=== PATIENT | male | born 1960 | race Caucasian/White ===

== ENCOUNTER → 2023-11-01 06:32 | Day surgery (SDC) | payer OTHER, SELFPAY | LOC: GI 06:32 | PROVIDERS: ATTENDING PHYSICIAN Internal Medicine Gastroenterology | DX: Z12.11 Encounter for screening for malignant neoplasm of colon (principal); K57.30 Diverticulosis of large intestine without perforation or abscess without bleeding; K64.8 Other hemorrhoids | CPT/HCPCS: G0121 ==

== ENCOUNTER → 2024-07-16 16:16 | Outpatient (REF) | payer OTHER, SELFPAY | LOC: RAD 16:16 | PROVIDERS: ATTENDING PHYSICIAN Physician Assistant Medical | DX: R10.9 Unspecified abdominal pain (principal) | CPT/HCPCS: 74178; Q9967 ==

== ENCOUNTER 2024-10-29 08:11 | Inpatient (IN) | payer OTHER, SELFPAY ==
[2024-10-28 20:23] VITALS: BP 148/95
[2024-10-28 20:38] LABS: % Basophils 0.2 % (0-2); % Immature Granulocytes 0.5 % (0-0.5); % Lymphocytes 9.2 % (20.5-51.1); % Monocytes 9.2 % (1.7-9.3); % Neutrophils 80.9 % (42.2-75.2); Absolute Immature Granulocytes 0.1 10^3/uL (0-0.05); Absolute Lymphocytes 1.1 10^3/uL (1.2-3.4); Absolute Monocytes 1.1 10^3/uL (0.1-0.6); Absolute Neutrophils 9.6 10^3/uL (1.4-6.5); Hematocrit 41.9 % (39.0-52.0); Hemoglobin 14.9 g/dL (13.0-18.0); Mean Corp Hgb Conc. 35.6 g/dL (33.0-37.0); Mean Corpuscular Hgb 31.2 pg (27.0-31.0); Mean Corpuscular Volume 87.7 fL (80.0-94.0); Mean Platelet Volume 9.3 fL (7.4-10.4); Nucleated Red Blood Cells % 0 % (-); Platelet Count 239 10^3/uL (130-400); Red Blood Cell Count 4.78 10^6/uL (4.70-6.10); White Blood Cell Count 11.9 10^3/uL (4.8-10.8)
[2024-10-28 21:00] LABS: ALT (SGPT) 33 U/L (0-50); AST (SGOT) 31 U/L (17-59); Albumin 4.7 g/dl (3.5-5.0); Alkaline Phosphatase 84 U/L (38-126); Blood Urea Nitrogen 13 mg/dl (9-20); Calcium 9.7 mg/dl (8.4-10.2); Carbon Dioxide 22 mmol/L (22-30); Chloride 106 mmol/L (98-107); Glucose 165 mg/dl (70-99); Potassium 4.1 mmol/L (3.5-5.1); Sodium 138 mmol/L (135-145); Total Bilirubin 1.3 mg/dl (0.2-1.3); Total Protein 7.7 g/dl (6.3-8.2); eGFR > 60.00
--- NOTE | 2024-10-28 21:32 | ED.GENMED ---
History of Present Illness
General
Chief Complaint: Abdominal Pain
Time Seen by Provider: 10/28/24 21:26
History of Present Illness
History of Present Illness:
Patient presents to the emergency department with lower abdominal pain. States he feels that he cannot have a bowel movement and he feels 'blocked.' Notes his last bowel movement was yesterday. He is passing gas. Denies any vomiting. Is having
discomfort in his lower abdomen
Phy Exam
Physical Exam
Physical Exam:
GENERAL APPEARANCE: NAD, well developed/ well nourished
EYES lids/conjunctiva normal
EARS/NOSE/THROAT Mucous membranes moist, uvula midline without oral pharyngeal erythema, exudate or swelling
HEAD/NECK normocephalic atraumatic, neck is supple.
RESPIRATORY respiratory effort normal, speaks in full sentences, no accessory muscle use. Lungs clear to auscultation without rhonchi, wheezes, rales
CARDIAC Regular rate and rhythm, no edema.
ABDOMINAL abdomen is mildly distended. There is mild lower abdominal tenderness throughout. There is no guarding. Abdomen is somewhat firm
MUSCLES/EXTREMITIES No abnormal range of motion, no swelling.
SKIN Warm, pink and dry. No rashes
NEUROLOGICAL Speech is clear and appropriate. Normal level of consciousness. 5/5 strength in all extremities.
PSYCH Normal mood and affect. Judgement/competence is appropriate
Course
Orders/Labs/Results
Orders:
Orders
10/28/24 20:29
Complete Blood Count/With Diff Urgent
Comprehensive Metabolic Panel Urgent
10/28/24 21:31
CT Abd/pelvis W Iv Cont Urgent
Comment:
Reason For Exam: lower abdominal pain
10/28/24 21:51
Lipase Urgent
10/28/24 22:53
Urinalysis Reflex To Culture Urgent
Date Specimen was Collected: 10/28/24
Time Specimen was Collected: 22:52
Urine Microscopic Reflex Cult Urgent
Urine Culture Urgent
SHELLEY Source: U
Specimen Description:
Obtained by: Random
Date Specimen was Collected: 10/28/24
Time Specimen was Collected: 22:52
10/28/24 23:19
0.9% Sodium Chloride 1000 ml [Nss] 1,000 ml IV BOLUS
Ampicillin/Sulbactam 3 G [Unasyn] 3 gm 0.9% Sodium Chloride 100 ml [Nss] 100 ml IV NOW
Morphine Sulfate 4 mg IV NOW STA
10/28/24 23:22
Ampicillin/Sulbactam 3 G [Unasyn] 3 gm 0.9% Sodium Chloride 100 ml [Nss] 100 ml IV NOW
Abnormal Lab Results
10/28/24 10/28/24 10/28/24
20:29 21:51 22:53
WBC 11.9 H 10^3/uL
(4.8-10.8)
MCH 31.2 H pg
(27.0-31.0)
Abs Immat Gran (auto) 0.1 H 10^3/uL
(0-0.05)
Absolute Neuts (auto) 9.6 H 10^3/uL
(1.4-6.5)
Absolute Lymphs (auto) 1.1 L 10^3/uL
(1.2-3.4)
Absolute Monos (auto) 1.1 H 10^3/uL
(0.1-0.6)
Neutrophils % 80.9 H %
(42.2-75.2)
Lymphocytes % 9.2 L %
(20.5-51.1)
Glucose 165 H mg/dl
(70-99)
Lipase 1084 H* U/L
(23-300)
Ur Occult Blood Reflex 1+ A
(Negative)
Leukocyte Esterase Rfl 1+ A
(Negative)
Urine Albumin (Reflex) 1+ A
(Neg - Trace)
10/28/24 20:29
10/28/24 20:29
Vital Signs
Initial and Last Documented VS:
Initial Vital Signs
Temp Pulse Resp Pulse Ox
99.0 F 103 18 96
10/28/24 20:22 10/28/24 20:22 10/28/24 20:22 10/28/24 20:22
Last Documented Vital Signs
Temp Pulse Resp BP Pulse Ox
99.0 F 103 18 143/83 95
10/28/24 20:22 10/28/24 20:22 10/28/24 20:22 10/28/24 23:00 10/28/24 23:15
*Critical Care Note
Total Time (30-74mins, 75-104mins- exclusive of procedures): Not Applicable
ED Attending Note
ED Attending Note
ED Attending Note:
Patient is overall generally well-appearing with lower abdominal discomfort but no pain. He is hemodynamically stable. Plan to check labs and CT abdomen pelvis
labs with WBC 11.9, lipase 1084
CT scan shows acute sigmoid diverticulitis
there is no abscess or perforation
he is having peritoneal signs on exam with firm abdomen
with this and the lipase elevation will keep him for IV fluids and antibiotics for diverticulitis with localized peritonitis
-
Portions of this chart may have been created with voice recognition software.� Occasional wrong word or��sound alike� substitutions may have occurred due to the inherent limitations of voice recognition software.
Discharge Plan
Departure
Patient Disposition: Admit
Date of Disposition: 10/28/24
Time of Disposition: 23:22
Presentation/result/management discussed w/ accepting MD/DO: Hospitalist
Discharge Problem:
Diverticulitis of sigmoid colon, Elevated lipase
Prescriptions:
No Action
lisinopril 10 MG tablet
10 mg PO
escitalopram oxalate 20 MG tablet
20 mg PO DAILY
Referrals:
Juan Alcaraz PA-C [Family Provider] -
Interventions
Interventions:
*Risk Screen - Suicide Last Done: 10/28/24 20:23
*General Assessment Last Done: 10/28/24 20:22
*Neglect/Abuse Screening Last Done: 10/28/24 20:23
*ED- Fall Risk Assessment Last Done: 10/28/24 21:35
*ED COVID-19 Vaccine History Last Done: 10/28/24 20:22
VO-Rxfuxd-Ladpjrqwvr Assessment Last Done: 10/28/24 21:35
Discharge Date and Time
Print Language: CONGOLESE
[2024-10-28 21:34] VITALS: BP 140/84
[2024-10-28 21:35] VITALS: BMI 32.0
[2024-10-28 22:00] VITALS: BP 148/91
[2024-10-28 22:18] LABS: Lipase 1084 U/L (23-300)
[2024-10-28 23:00] VITALS: BP 143/83
[2024-10-28 23:00] LABS: Urine Albumin 1+ (Neg - Trace); Urine Bilirubin Negative (Negative); Urine Character Clear (Clear); Urine Color Yellow; Urine Glucose Negative (Negative); Urine Ketone Negative (Negative); Urine Leukocyte 1+ (Negative); Urine Nitrite Negative (Negative); Urine Occult Blood 1+ (Negative); Urine Urobilinogen Negative (Neg - 1+)
[2024-10-28 23:11] LABS: Urine Mucus Few; Urine Red Blood Cell 0-2 /HPF (0-2); Urine White Cell 0-2 /HPF (0-5)
[2024-10-28] MEDS: NSS 1000 IV (23:27)
[2024-10-28] MEDS: MORPHINE SULFATE 4 MG IV (23:27)
[2024-10-28] MEDS: UNASYN IV (23:32)
--- NOTE | 2024-10-28 23:34 | HPS.HSE ---
Family Physician
-
Family Physician: Juan Alcaraz PA-C
Chief Complaint
-
Abdominal pain
History of Present Illness
Is a 64-year-old male with past medical history significant for hypertension, depression, alcohol use who presents to the emergency department with approximately 1 day history of lower abdominal pain.
Patient reports onset of constipation and difficulty with bowel movements about 1 day ago. He has never had this before. He has some nausea. He started having abdominal pain that was localized to the bilateral lower quadrants. He had no urinary
symptoms. He denies any radiation of the pain to the back. Patient reported that 8 had similar pain a few months ago had a CT scan which showed diverticulosis without diverticulitis. He also had a colonoscopy a year ago that showed
diverticulosis. He denies any fevers or chills but reports that they had decreased p.o. intake and has felt weaker today.
While in the emergency department he was found to have elevated lipase. Patient drinks about 3-4 drinks nightly. He states he has stopped drinking before without any complications. He denies any history of biliary disease or gallstones. He
denies family history of such.
In the emergency department he was afebrile, blood pressure was 143/80 with a pulse of 100 and satting 95% on room air. Had a white count 11.9, hemoglobin and platelets were normal. Electrolytes were normal BUN/creatinine were normal and glucose
was 165. LFTs were normal. Lipase was 1000. UA was negative.
CT of the abdomen and pelvis showed acute diverticulitis of the sigmoid colon without evidence of perforation or pericolonic abscess. He had hepatic steatosis which was similar to prior. Bile ducts and gallbladder were normal. Pancreas shows no
acute abnormality.
Medical History
Past Medical History
Past Medical History: Reports HTN and Psychiatric (depression/anxiety)
Past Surgical History: Reports None
Social History
Tobacco: Non-smoker
Alcohol: Daily
Drug: None
Personal:
Living: With Family
Employment: Employed
Family History
Family History: Not pertinent
Allergies / Home Medications
Allergies reflects when Allergies were last updated in [employer].
Home Medications with original date entered in [employer]
Allergy/Medication List:
Allergies
Allergy/AdvReac Type Severity Reaction Status Date / Time
NKA - No Known Allergies Allergy Unknown Uncoded 06/20/20 15:46
Home Medications
Atorvastatin Calcium 40 MG 1 tablet Orally Once a day
lisinopril 10 mg tablet 10 mg PO 06/20/20
Review of Systems
-
History Source: Patient
Constitutional: Reports No Symptoms
EENT: Reports No Symptoms
Respiratory: Reports No Symptoms
Cardiac: Reports No Symptoms
Abdomen/GI: Reports Abdominal Pain and Constipated
: Reports No Symptoms
Musculoskeletal: Reports No Symptoms
Skin: Reports No Symptoms
Neurological: Reports No Symptoms
Endocrine: Reports No Symptoms
Hematologic/Lymphatic: Reports No Symptoms
Psych: Reports No Symptoms
Physical Exam
Vital Signs
Vital Signs
Temp Pulse Resp BP Pulse Ox
99.0 F 103 18 143/83 95
10/28/24 20:22 10/28/24 20:22 10/28/24 20:22 10/28/24 23:00 10/28/24 23:15
Physical Exam
General: Well Developed, Well Nourished, No Apparent Distress, Comfortable, Good Appetite, Poor Appetite, Slurred Speech and Appears Chronically Ill
HEENT: NormoCephalic, Anicteric, Moist mucous membranes, Atraumatic, PERRLA and No Ptosis
Respiratory: Clear
Cardiac: S1/S2 and Regular Rhythm
Breast: Deferred by me
GI: Soft, Non Distended, Normal Bowel Sounds and Tender (LLQ)
Rectal: Deferred by Provider
Genito-urinary: Clear Urine
Musculoskeletal: No Clubbing, No Cyanosis and No Edema
Skin: Warm
Neuro: AO x 3 and Nonfocal/grossly intact
Hematologic/Lymphatic: No Lymphadenopathy
Psych: Calm
Laboratory Results
-
10/28/24 20:29
10/28/24 20:29
Laboratory Results
Total Bilirubin 1.3 mg/dl (0.2-1.3) 10/28/24 20:29
AST 31 U/L (17-59) 10/28/24 20:29
ALT 33 U/L (0-50) 10/28/24 20:29
Alkaline Phosphatase 84 U/L (38-126) 10/28/24 20:29
Lipase 1084 U/L (23-300) H* 10/28/24 21:51
Data Reviewed
-
CT Scan: Report Reviewed by me
Lab Data: Labs Reviewed by me
Old Records: Reviewed
Impression/Plan
-
IMPRESSION:
64-year-old with department with history of hypertension hyperlipidemia, chronic alcohol use about 3-4 drinks nightly without history of alcohol related complication past presents emergency department with 1 day of abdominal pain and constipation
and found to have acute sigmoid diverticulitis without complication. Is hemodynamically stable afebrile with mild leukocytosis. No perforation, no abscess. Patient was found to have elevated lipase of [address] scan shows hepatic
steatosis which was seen previously. No biliary abnormality no gallstones. Suspect alcoholic pancreatitis but cannot rule out other etiology at this time.
PLAN:
1. Acute diverticulitis
- admit to med/surg
- NPO for now
- IV fluids
- pain control
- IV Unasyn started in ED, will continue for now
- serial examinations
- ADAT in am
2. Pancreatitis - elevated lipase, no epigastric or Ruq pain, no vomiting. Normal pancreatic tissue on CT. Normal GB and bile duct. No stones noted. Given etoh, suspect alcoholic pancreatitis but asymptomatic.
- discussed etoh cessation which patient obliged to
- tx as above for now
- check triglycerides
3. HTN
- continue lisinopril
DVT PPX - lovenox sq
Code status - Full code
[2024-10-29] VITALS: BP 138/84
[2024-10-29 01:59] VITALS: BMI 30.5
[2024-10-29 02:00] VITALS: BP 151/59
[2024-10-29] MEDS: LR 1000 IV ×3 (02:01→23:47)
[2024-10-29] MEDS: UNASYN IV ×4 (05:47→23:56)
[2024-10-29 06:49] LABS: Hematocrit 38.2 % (39.0-52.0); Hemoglobin 13.5 g/dL (13.0-18.0); Mean Corp Hgb Conc. 35.3 g/dL (33.0-37.0); Mean Corpuscular Hgb 31.4 pg (27.0-31.0); Mean Corpuscular Volume 88.8 fL (80.0-94.0); Mean Platelet Volume 9.7 fL (7.4-10.4); Platelet Count 203 10^3/uL (130-400); Red Cell Dist. Width 12.3 % (11.5-14.5); White Blood Cell Count 9.8 10^3/uL (4.8-10.8)
[2024-10-29 07:01] LABS: Blood Urea Nitrogen 10 mg/dl (9-20); Calcium 9.2 mg/dl (8.4-10.2); Carbon Dioxide 25 mmol/L (22-30); Chloride 106 mmol/L (98-107); Estimated Creatinine Clearance 96 ml/min; Glucose 122 mg/dl (70-99); Magnesium 1.9 mg/dl (1.6-2.3); Potassium 3.9 mmol/L (3.5-5.1); Sodium 138 mmol/L (135-145); eGFR > 60.00
[2024-10-29 07:10] VITALS: BP 134/74
[2024-10-29] MEDS: ZESTRIL 10 MG PO (08:31)
--- NOTE | 2024-10-29 10:47 | W.PN.HOSP.TC ---
Today's Communication/Plan
-
Start clear liquid
Assessment / Plan
Assessment / Plan
Impression:
Patient is 64 years old with history of hypertension, depression, alcohol use who came to the ER with lower abdominal pain found to have acute diverticulitis.
Assessment/plan
Acute sigmoid diverticulitis
Admitted last night
CT abdomen showed:
Acute diverticulitis of the sigmoid colon without evidence of perforation or pericolonic abscess.
Started on Unasyn, will continue
Pain and nausea control
Start clear liquid
Acute alcoholic pancreatitis
elevated lipase at 1084
No evidence of pancreatitis on CT scanning.
Triglyceride pending.
Clear liquid
History of hypertension
Continue lisinopril
History of hyperlipidemia
Continue statin
CODE STATUS: Full code
DVT prophylaxis: Lovenox
Diet: Clear liquid
Total time spent on today's encounter was 65 minutes which included time spent in counseling the patient/family regarding diagnosis and treatment plan as listed above, goals of care, and symptom management. Case was discussed with nursing staff,
specialists, and care coordinators/case management. All labs and imaging personally reviewed by me. Remainder the time spent in detailed review of previous records, lab data, imaging, and other medical provider documentation.
Anticipated Discharge: 24 - 48 hours
Subjective/Interval History
-
Date of Service: October 29, 2024
Patient seen and examined at bedside, still complaining of abdominal discomfort but nausea and vomiting improved.
Denies any chest pain or shortness of breath, patient willing to try clear liquid diet.
Objective Data
-
Labs:
Laboratory Results
10/29/24
05:19
WBC 9.8
Hgb 13.5
Hct 38.2 L
Plt Count 203
Sodium 138
Potassium 3.9
Chloride 106
Carbon Dioxide 25
BUN 10
Creatinine 0.8
Glucose 122 H
Calcium 9.2
Vital Signs:
Vital Signs
Temp Pulse Resp BP Pulse Ox
98.2 F 79 18 134/74 93
10/29/24 07:10 10/29/24 07:10 10/29/24 07:10 10/29/24 07:10 10/29/24 07:10
I&O
10/28/24 10/29/24 10/30/24
06:59 06:59 06:59
Intake Total 620 / 620
Balance 620 / 620
Physical Exam
-
General: Well Developed, Well Nourished, No Apparent Distress and Comfortable
HEENT: Normocephalic, Atraumatic, Moist Mucous Membranes, No Ptosis, PERRLA and Nose Appears Normal
Respiratory: Clear to Auscultation and Non Labored Respirations
Cardiac: Regular Rhythm and S1/S2
Breast: Deferred by me
GI: Normal Bowel Sounds, Tender and Distended
Genito-urinary: No Costovertebral Tender
Musculoskeletal: No Clubbing, No Cyanosis and No Edema
Skin: Warm
Neuro: Awake, Alert, Oriented, AO x 3 and No Motor Deficits
Psych: Calm
Data Reviewed
-
Diagnostic Radiology: Image personally visualized and interpreted and Report Reviewed by me
CT Scan: Image personally visualized and interpreted and Report Reviewed by me
Ultrasound: Image personally visualized and interpreted and Report Reviewed by me
MRI: Image personally visualized and interpreted and Report Reviewed by me
Medical Tests (Nuc Med, Echo etc): Image personally visualized and interpreted and Report Reviewed by me
Labs: Labs Reviewed by me
Old Records: Reviewed
[2024-10-29 11:50] LABS: HDL Cholesterol 66 mg/dl; LDL Cholesterol, Calculated 105 mg/dl; Total Cholesterol 185 mg/dl (50-199); Triglyceride 72 mg/dl (10-149); Very Low Density Lipoprotein 14 mg/dl (0-30)
[2024-10-29] MEDS: MORPHINE SULFATE 2 MG IV (11:57)
--- NOTE | 2024-10-29 14:41 | CM ---
Initial assessment completed
Pt lives with his in a 2 story home; no steps to enter, 10 steps to 2nd fl
Independent, employed, drives
DME - none
SNF/HH - denies past hx
Has ride at d/c
PCP - Juan Alcaraz
Pharm -[facility]
Plan - anticipate home no needs
[2024-10-29 15:10] VITALS: BP 115/71
--- NOTE | 2024-10-29 16:49 | PTCARENOTE ---
pt transferred to [facility]- by stretcher with all personal belongings. report given to cristhian
[2024-10-29 16:59] VITALS: BP 156/88
[2024-10-29] MEDS: LIPITOR 40 MG PO (17:35)
[2024-10-29 22:33] VITALS: BP 148/75
[2024-10-30] MEDS: UNASYN IV ×2 (05:57→11:43)
[2024-10-30 07:36] VITALS: BP 134/81
[2024-10-30] MEDS: ZESTRIL 10 MG PO (08:06)
[2024-10-30 08:57] LABS: Hematocrit 37.1 % (39.0-52.0); Hemoglobin 12.9 g/dL (13.0-18.0); Mean Corp Hgb Conc. 34.8 g/dL (33.0-37.0); Mean Corpuscular Hgb 31.2 pg (27.0-31.0); Mean Corpuscular Volume 89.6 fL (80.0-94.0); Mean Platelet Volume 9.7 fL (7.4-10.4); Platelet Count 201 10^3/uL (130-400); Red Blood Cell Count 4.14 10^6/uL (4.70-6.10); White Blood Cell Count 8.2 10^3/uL (4.8-10.8)
[2024-10-30 09:08] LABS: Blood Urea Nitrogen 11 mg/dl (9-20); Calcium 9.1 mg/dl (8.4-10.2); Carbon Dioxide 24 mmol/L (22-30); Chloride 106 mmol/L (98-107); Estimated Creatinine Clearance 96 ml/min; Glucose 104 mg/dl (70-99); Potassium 4.2 mmol/L (3.5-5.1); Sodium 139 mmol/L (135-145); eGFR > 60.00
[2024-10-30] MEDS: LR IV (09:55)
--- NOTE | 2024-10-30 13:14 | W.PN.HOSP.TC ---
Today's Communication/Plan
-
Dc Home today
Assessment / Plan
Assessment / Plan
Impression:
Patient is 64 years old with history of hypertension, depression, alcohol use who came to the ER with lower abdominal pain found to have acute diverticulitis.
Assessment/plan
Acute sigmoid diverticulitis
Admitted last night
CT abdomen showed:
Acute diverticulitis of the sigmoid colon without evidence of perforation or pericolonic abscess.
Started on Unasyn, will continue
Pain and nausea control
Start clear liquid
10/30
Tolerated low residual diet, will discharge home today
Acute alcoholic pancreatitis
elevated lipase at 1084
No evidence of pancreatitis on CT scanning.
Triglyceride pending.
Clear liquid
10/30
Tolerated low residual diet, will discharge home today
History of hypertension
Continue lisinopril
History of hyperlipidemia
Continue statin
CODE STATUS: Full code
DVT prophylaxis: Lovenox
Diet: Clear liquid
Total time spent on today's encounter was 35 minutes which included time spent in counseling the patient/family regarding diagnosis and treatment plan as listed above, goals of care, and symptom management. Case was discussed with nursing staff,
specialists, and care coordinators/case management. All labs and imaging personally reviewed by me. Remainder the time spent in detailed review of previous records, lab data, imaging, and other medical provider documentation.
Anticipated Discharge: Today
Subjective/Interval History
-
Date of Service: October 30, 2024
Patient seen and examined at bedside, denies any chest pain or shortness of breath, no abdominal pain, no nausea, no vomiting, no diarrhea or constipation.
Tolerating low residual diet, will discharge home today.
Objective Data
-
Labs:
Laboratory Results
10/30/24
07:56
WBC 8.2
Hgb 12.9 L
Hct 37.1 L
Plt Count 201
Sodium 139
Potassium 4.2
Chloride 106
Carbon Dioxide 24
BUN 11
Creatinine 0.8
Glucose 104 H
Calcium 9.1
Vital Signs:
Vital Signs
Temp Pulse Resp BP Pulse Ox
98.2 F 72 18 134/81 96
10/30/24 07:36 10/30/24 08:06 10/30/24 07:36 10/30/24 08:06 10/30/24 07:36
I&O
10/29/24 10/30/24 10/31/24
06:59 06:59 06:59
Intake Total 620 / 620 1779
Balance 620 / 620 1779
Physical Exam
-
General: Well Developed, Well Nourished, No Apparent Distress and Comfortable
HEENT: Normocephalic, Atraumatic, Moist Mucous Membranes, No Ptosis, PERRLA and Nose Appears Normal
Respiratory: Clear to Auscultation and Non Labored Respirations
Cardiac: Regular Rhythm and S1/S2
Breast: Deferred by me
GI: Normal Bowel Sounds, Tender and Distended
Genito-urinary: No Costovertebral Tender
Musculoskeletal: No Clubbing, No Cyanosis and No Edema
Skin: Warm
Neuro: Awake, Alert, Oriented, AO x 3 and No Motor Deficits
Psych: Calm
--- NOTE | 2024-10-30 13:17 | W.DCSUMMARY ---
Discharge Summary
Discharge Data
Date of Admission: 10/29/24
Date of Discharge: 10/30/24
-
Pending Results: No
Hospital Course
Impression:
Patient is 64 years old with history of hypertension, depression, alcohol use who came to the ER with lower abdominal pain found to have acute diverticulitis.
Patient started on Unasyn, was n.p.o. initially then started on clear liquid diet.
Patient tolerated clear liquid diet, advance to low-fat/low residual diet and tolerated.
Will be discharged on oral Augmentin, advised to follow-up with GI for possible colonoscopy on 4 to 6-weeks.
Assessment/plan
Acute sigmoid diverticulitis
Admitted last night
CT abdomen showed:
Acute diverticulitis of the sigmoid colon without evidence of perforation or pericolonic abscess.
Started on Unasyn, will continue
Pain and nausea control
Start clear liquid
10/30
Tolerated low residual diet, will discharge home today
Acute alcoholic pancreatitis
elevated lipase at 1084
No evidence of pancreatitis on CT scanning.
Triglyceride pending.
Clear liquid
10/30
Tolerated low residual diet, will discharge home today
History of hypertension
Continue lisinopril
History of hyperlipidemia
Continue statin
CODE STATUS: Full code
DVT prophylaxis: Lovenox
Diet: Low residual, low-fat
Total time spent on today's encounter was 35 minutes which included time spent in counseling the patient/family regarding diagnosis and treatment plan as listed above, goals of care, and symptom management. Case was discussed with nursing staff,
specialists, and care coordinators/case management. All labs and imaging personally reviewed by me. Remainder the time spent in detailed review of previous records, lab data, imaging, and other medical provider documentation.
Discharge Plan
-
Patient Disposition: Home (Routine Discharge)
Discharge Diagnosis/Procedures: Acute diverticulitis, acute pancreatitis
Condition: Good
Diet: Low Fat and Low Residue
Activity: No restrictions
Driving Restrictions: As prior to admission
Referrals:
Ganga Gutierrez MD [Active] - in four to six weeks
Juan Alcaraz PA-C [Family Provider] -
Prescriptions:
New
amoxicillin-pot clavulanate 875-125 mg tablet
1 tab PO BID Qty: 14 0RF
Continued
lisinopril 10 MG tablet
10 mg PO
escitalopram oxalate 20 MG tablet
20 mg PO DAILY
Discharge Orders:
Discharge Patient (As Directed); Ordered 10/30/24
Ordered By: Jamshid Martinez
Discharge Date and Time
Print Language: AUSTRALIAN
[2024-10-30 14:28] VITALS: BP 161/85
--- NOTE | 2024-10-30 14:28 | PTCARENOTE ---
Pt educated on discharge packet. Reports no questions at this time. IV removed. providing transportation.
== END 2024-10-30 14:37 | disposition home or self-care (01) | DRG 391 ==
LOC: 4 EAST ACU 08:11
PROVIDERS: Emergency Medicine; ADMITTING PHYSICIAN Internal Medicine; ATTENDING PHYSICIAN General Practice; EMERGENCY PHYSICIAN Emergency Medicine; FAMILY PHYSICIAN Physician Assistant Medical
DX: K57.32 Diverticulitis of large intestine without perforation or abscess without bleeding (principal); K65.9 Peritonitis, unspecified; K85.20 Alcohol induced acute pancreatitis without necrosis or infection; I10 Essential (primary) hypertension; F41.9 Anxiety disorder, unspecified; F32.A Depression, unspecified; K59.00 Constipation, unspecified; K76.0 Fatty (change of) liver, not elsewhere classified; E78.5 Hyperlipidemia, unspecified; F10.90 Alcohol use, unspecified, uncomplicated
CPT/HCPCS: 74177; 80048; 80053; 80061; 81003; 81015; 83690; 83735; 85025; 85027; 87086; 96365; 96375; 99285; Q9967